=== PATIENT | female | born 1965 | race Caucasian/White ===

== ENCOUNTER 2017-06-19 12:02 | Emergency (ER) | payer MEDICAID ==
[2017-06-19] MEDS: PENICILLIN G BENZ 1.2 MIL UNIT SYG IM (12:51)
[2017-06-19] MEDS: IBUPROFEN 800 MG TAB PO (12:52)
== END 2017-06-19 13:46 | disposition home or self-care (01) ==
LOC: FTE 12:02
DX: J02.9 Acute pharyngitis, unspecified (principal)
CPT/HCPCS: 96372; 99284-25